=== PATIENT | male | born 1950 | race Caucasian/White ===

== ENCOUNTER → 2018-11-14 | Outpatient (REF) | payer MEDICAID ==
[~2018-11-14] MED LIST: HALD5INJ2 IM; HALO10TA2 PO
[2018-11-14 18:07] LABS: BASO % 0.6 % (0.0-1.0); EOS # 0.1 10^3/uL (0.0-0.50); EOS % 1.8 % (0.0-3.0); HEMATOCRIT 31.1 % (42.0-52.0); HEMOGLOBIN 10.2 g/dl (13.5-17.5); LYMPH # 0.3 10^3/uL (1.5-4.5); LYMPH % 9.4 % (24.0-44.0); MEAN CORPUSCULAR HEMOGLOBIN 32.3 pg (27.0-33.0); MEAN CORPUSCULAR HGB CONC 32.8 g/dl (32.0-36.5); MEAN CORPUSCULAR VOLUME 98.4 fl (80.0-96.0); MONO # 0.5 10^3/uL (0.0-0.8); MONO % 14.9 % (0.0-5.0); NEUTROPHILS # 2.5 10^3/uL (1.8-7.7); NEUTROPHILS % 72.7 % (36.0-66.0); PLATELET COUNT, AUTOMATED 164 10^3/uL (150-450); RED BLOOD COUNT 3.16 10^6/uL (4.30-6.10); WHITE BLOOD COUNT 3.4 10^3/uL (4.0-10.0)
[2018-11-14 18:17] LABS: ALBUMIN 3.9 GM/DL (3.2-5.2); ALT/SGPT 15 U/L (12-78); BILIRUBIN,TOTAL 0.8 MG/DL (0.2-1.0); BLOOD UREA NITROGEN 15 MG/DL (7-18); CALCIUM LEVEL 9.1 MG/DL (8.8-10.2); CARBON DIOXIDE LEVEL 27 MEQ/L (21-32); CHLORIDE LEVEL 104 MEQ/L (98-107); CREATININE FOR GFR 1.55 MG/DL (0.70-1.30); GLOMERULAR FILTRATION RATE 47.7 (>49); GLUCOSE, FASTING 89 MG/DL (70-100); POTASSIUM SERUM 4.3 MEQ/L (3.5-5.1); PROSTATIC SPECIFIC AG MONITOR < 0.01 NG/ML (< 4.00); SODIUM LEVEL 139 MEQ/L (136-145)
== END ==
LOC: M LAB REF 17:22
PROVIDERS: ATTEND Family Medicine Addiction Medicine
DX: C61 Malignant neoplasm of prostate (principal); G25.0 Essential tremor

== ENCOUNTER → 2018-11-18 | Outpatient (CLI) | payer MEDICAID, MEDICARE ==
[~2018-11-18] MED LIST changes: +ISOVUE-370 76% 100ML VIAL (Q9967) As Ordered ONE
--- NOTE | 2018-11-18 15:22 | REP ---
CT NECK WITH CONTRAST: HISTORY: Squamous cell carcinoma. CONTRAST: Isovue 370, 100 mL. Previous examinations are not available for comparison. Increased soft tissue density is present in the the right tongue . There is deformity of the tongue musculature. There is extension of the soft tissue density into the right lateral wall of the oropharynx. There is superior extension into the right tonsil. Increased soft tissue density is present in the preepiglottic space and in the vallecula. There is thickening of the aryepiglottic folds. Increased density is present in the retropharyngeal space and in the anterior subcutaneous tissues. The nasopharynx, larynx and subglottic trachea are normal in appearance. The salivary and thyroid glands are normal in size and density. Small lymph nodes less than 1 cm in size are present in the internal jugular chains, posterior triangles, submandibular and submental areas. Noncalcified atherosclerotic plaques are present at the carotid bifurcations. Degenerative change is present in the cervical spine. The lung apices are clear. The visualized sinuses are clear. A large retro cerebellar cyst is present. IMPRESSION: 1. There is there is no soft tissue density in the right tongue with extension into the right lateral wall of the oropharynx and right tonsil suspicious for residual or recurrent tumor. 2. Findings consistent with post radiation change. Old examinations would be helpful for comparison. Electronically Signed by Richmond Mccollum MD 11/18/2018 03:33 P
--- NOTE | 2018-11-18 18:09 | REP ---
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 Staging. No comparison study. CT contrast dose: 100 ml of intravenous Isovue 370. CT findings: Preliminary digital director of sustainability radiograph demonstrates an Qawttk-K-Mvpo catheter and feeding G tube. Ylseah-Z-Ekpc catheter is seen in the superior vena cava. No pleural or pericardial effusion is seen. There are scattered normal-sized mediastinal lymph nodes. There are two normal-sized right hilar lymph nodes. No definite adenopathy is seen. There is a small bullous in the medial aspect of the left lung apex. Lung pereyra are otherwise clear. No suspicious pulmonary nodule or mass lesion is seen. No infiltrate is observed. Bone window settings demonstrate benign hemangiomas in two adjacent lower thoracic vertebrae. No bony destructive lesion is seen. No axillary or extrathoracic adenopathy is seen. Impression: No evidence of mass or definite adenopathy. Rqcwpn-U-Rxso catheter in place. Electronically Signed by Taiwo Moralez MD 11/18/2018 06:58 P
--- NOTE | 2018-11-18 18:31 | REP ---
CT ABDOMEN PELVIS WITH IV CONTRAST ONLY: 11/18/2018. Clinical history: Squamous cell carcinoma. Technique: Bolus of 100 ml Isovue 370 performed with scanning through the abdomen pelvis with both coronal and sagittal reconstructions provided. Findings: No prior CT abdomen pelvis. CT abdomen: See CT chest report today for evaluation of the lung bases. No definite hiatal hernia. The liver is not enlarged and shows no focal mass or biliary dilatation. There is no splenomegaly hepatic or splenic calcification or mass. I see no subcapsular hematoma for either of those organs. The gallbladder shows no calcified stone or mass. Pancreas was unremarkable. The aorta is without aneurysm or dissection. There is no periaortic, retroperitoneal or mesenteric pathologic sized lymphadenopathy. Lung windows show stool and gas scattered throughout the colon without evidence of any definite colitis, diverticulitis, stricture or mass. Small bowel loops were unremarkable. Appendix is seen and normal. Bone windows show degenerative changes in the lower thoracic and lumbar spine without destructive lesion or spondylolysis. Appears to be T9 and T10 vertebral hemangiomas, benign findings. No ascites. CT pelvis: Sacrum, SI joints, pelvis, hips and ischia show some minor degenerative change without destructive lesion or fracture. Atherosclerotic calcifications iliac vessels without aneurysm. Distal left colon, sigmoid and rectum without any acute finding. Trace amount of free fluid in the deep pelvis without fluid in the peroneal gutters. Bladder only partially filled. Therefore, wall thickness difficult to director work. No gross mass or stone. No renal, ureteral or bladder stone. The kidneys without mass. Small cyst posteriorly upper and lower pole on the left. No ventral or inguinal hernia nor pathologic sized inguinal adenopathy. Impression: 1. Solid organs in the upper abdomen without acute finding. There is no calcified gallstone, biliary dilatation or generalized ascites in the abdomen. The kidneys show only a couple of tiny cysts on the left without hydronephrosis or stone. 2. Some atherosclerotic calcifications aorta without aneurysm. 3. Small bowel loops, colon and appendix seen and grossly on remarkable. 4. Bladder only partially filled and therefore, wall thickness difficult to director work. No gross mass or stone. No ventral or inguinal hernia. No acute finding. Electronically Signed by Rafal Forbes MD 11/20/2018 11:45 A
== END ==
LOC: M RAD 13:49
PROVIDERS: ATTEND Internal Medicine Hematology & Oncology
DX: Z08 Encounter for follow-up examination after completed treatment for malignant neoplasm (principal); C02.9 Malignant neoplasm of tongue, unspecified; R93.89 Abnormal findings on diagnostic imaging of other specified body structures
CPT/HCPCS: 70491; 71260; 74177; Q9967

== ENCOUNTER → 2018-12-07 | Outpatient (REF) | payer MEDICAID ==
[~2018-12-07] MED LIST changes: -ISOVUE-370 76% 100ML VIAL (Q9967) As Ordered ONE
[2018-12-07 16:12] LABS: BASO % 0.5 % (0.0-1.0); EOS % 0.9 % (0.0-3.0); HEMATOCRIT 28.8 % (42.0-52.0); HEMOGLOBIN 9.9 g/dl (13.5-17.5); LYMPH # 0.3 10^3/uL (1.5-4.5); LYMPH % 7.7 % (24.0-44.0); MEAN CORPUSCULAR HEMOGLOBIN 33.7 pg (27.0-33.0); MEAN CORPUSCULAR HGB CONC 34.4 g/dl (32.0-36.5); MONO # 0.6 10^3/uL (0.0-0.8); MONO % 12.9 % (0.0-5.0); NEUTROPHILS # 3.4 10^3/uL (1.8-7.7); NEUTROPHILS % 77.8 % (36.0-66.0); PLATELET COUNT, AUTOMATED 142 10^3/uL (150-450); RED BLOOD COUNT 2.94 10^6/uL (4.30-6.10); WHITE BLOOD COUNT 4.4 10^3/uL (4.0-10.0)
[2018-12-07 16:14] LABS: ALBUMIN 3.3 GM/DL (3.2-5.2); BILIRUBIN,TOTAL 0.4 MG/DL (0.2-1.0); CALCIUM LEVEL 8.4 MG/DL (8.8-10.2); CREATININE FOR GFR 1.35 MG/DL (0.70-1.30); POTASSIUM SERUM 3.3 MEQ/L (3.5-5.1); TOTAL PROTEIN 5.9 GM/DL (6.4-8.2)
== END ==
LOC: M LAB REF 15:37
PROVIDERS: ATTEND Family Medicine Addiction Medicine
DX: D64.89 Other specified anemias (principal); N18.2 Chronic kidney disease, stage 2 (mild)

== ENCOUNTER → 2019-01-10 | Outpatient (CLI) | payer MEDICARE, MEDICAID ==
[~2019-01-10] MED LIST changes: +FERR325T82 PO
--- NOTE | 2019-01-10 14:54 | REP ---
PET/CT: History: Staging for squamous cell carcinoma base of tongue. Status post chemotherapy and radiation. Comparisons: Comparison is made with soft tissue CT study of the neck and CT study of the chest, abdomen, and pelvis from November 18, 2018. TECHNIQUE: 55 minutes following the intravenous injection of a 7.2 mCi dose of F-18 FDG, three-dimensional PET scintigraphy is acquired from the skull base to the proximal thighs. Triplanar noncontrast CT scanning is acquired through the same anatomic range for attenuation correction, and image registration with scan parameters optimized to minimize radiation exposure to the patient. PET scintigraphy and CT datasets were fused and displayed on a workstation with multiplanar and projection display capability. PET/CT findings: There is minimal motion misregistration artifact at the head and neck. There is some mildly increased uptake in the soft palate which may be normal variant or postradiation change. Maximum standard uptake value is 6.7. There is no abnormal uptake in the tongue base. There is some mild deformity of the tongue seen. No abnormal cervical adenopathy or hypermetabolic uptake in the lymph nodes is seen. There is hypermetabolic uptake in the arytenoid cartilage region which can be normal variant. Maximum standard uptake value is 15.97. There is no corresponding abnormality morphologically here on today's CT or recent soft-tissue neck CT at the level of the arytenoids. No cervical hypermetabolic adenopathy is seen. In the chest, there is hypermetabolic uptake in a subcentimeter lung nodule in the right upper lobe, maximum standard uptake value 3.58. This nodule was not visible on the November 18, 2018 CT study. In addition, there is mildly hypermetabolic uptake in the right hilus focally suggesting a lymph node here. Maximum standard uptake value is 4.3. The recent CT study shows a normal appearing 9 mm lymph node in this position in the right hilus. There is normal longitudinally oriented mucosal esophageal uptake. No other abnormal uptake is seen within the chest. In the abdomen and pelvis, normal hepatic, splenic, gastrointestinal, and genitourinary FDG accumulation is seen. No other abnormal uptake is observed. No abnormal skeletal hypermetabolic uptake is seen. Impression: Foci of increased uptake at the level of the arytenoid cartilages and in the soft palate consistent with normal variant. No abnormal tongue base uptake is seen. No cervical adenopathy seen. There is however hypermetabolic uptake in a new right upper lobe subcentimeter pulmonary nodule and in a right hilar lymph node. Electronically Signed by Taiwo Moralez MD 01/10/2019 03:56 P
== END ==
LOC: M PLARAD 10:09
PROVIDERS: ATTEND Internal Medicine Hematology & Oncology
DX: R59.9 Enlarged lymph nodes, unspecified (principal); C01 Malignant neoplasm of base of tongue; R93.89 Abnormal findings on diagnostic imaging of other specified body structures
CPT/HCPCS: 78815; A9552

== ENCOUNTER 2019-06-29 12:55 | Emergency (ER) | payer MEDICARE, MEDICAID ==
[~2019-06-29] VITALS: Ht 175.3 cm; Wt 81.2 kg
--- NOTE | 2019-06-29 13:46 | ECGEPIP ---
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 Order Number: [id number] Reading MD: Denis Diane Measurements Intervals [place] Rate: 53 P: [place]: 0 QRS: 6 QRSD: 103 T: 52 QT: 447 QTc: 420 Interpretive Statements SINUS BRADYCARDIA WITH FIRST DEGREE AV BLOCK NO PRIORS FOR COMPARISON Electronically Signed on 06-29-2019 13:45:49 EDT by Denis Diane
--- NOTE | 2019-06-29 14:08 | REP ---
PA and lateral chest: Comparison is the chest CT dated 11/18/2018. The lung pereyra are hyperinflated but otherwise clear. There are no masses or nodules. There is a right IJ Sztfnn-A-Pkvh catheter with the tip in the superior vena cava in satisfactory position, unchanged. Cardiac size is normal. The richard, mediastinum, skeletal structures are unremarkable. Impression: Hyperinflation. No infiltrates, effusions, masses or nodules. Right IJ Fnlebu-O-Mulz catheter Electronically Signed by Donaldo Conklin MD 06/29/2019 02:00 P
[2019-06-29 14:11] LABS: APPEARANCE, URINE CLEAR (CLEAR); BACTERIA, URINE AUTO NEGATIVE (NEGATIVE); BILIRUBIN, URINE AUTO NEGATIVE (NEGATIVE); BLOOD, URINE BLOOD NEGATIVE (NEGATIVE); COLOR, URINE RED (YELLOW); GLUCOSE, URINE (UA) AUTO NEGATIVE (NEGATIVE); KETONE, URINE AUTO NEGATIVE (NEGATIVE); LEUKOCYTE ESTERASE, URINE AUTO NEGATIVE (NEGATIVE); NITRITE, URINE AUTO NEGATIVE (NEGATIVE); PROTEIN, URINE AUTO NEGATIVE (NEGATIVE); RBC, URINE AUTO 0 /HPF (0-3); SPECIFIC GRAVITY URINE AUTO 1.001 (1.002-1.035); SQUAMOUS EPITHELIAL CELL UR AU 0 /HPF (0-6); UROBILINOGEN, URINE AUTO 0.2 mg/dL (0.0-2.0); WBC, URINE AUTO 0 /HPF (0-3)
[2019-06-29 14:16] LABS: BASO % 0.6 % (0.0-1.0); EOS # 0.1 10^3/uL (0.0-0.50); EOS % 1.8 % (0.0-3.0); HEMOGLOBIN 9.4 g/dl (13.5-17.5); LYMPH # 0.3 10^3/uL (1.5-4.5); LYMPH % 6.9 % (24.0-44.0); MEAN CORPUSCULAR HEMOGLOBIN 32.4 pg (27.0-33.0); MEAN CORPUSCULAR HGB CONC 33.6 g/dl (32.0-36.5); MEAN CORPUSCULAR VOLUME 96.6 fl (80.0-96.0); MONO # 0.5 10^3/uL (0.0-0.8); NEUTROPHILS % 80.3 % (36.0-66.0); PLATELET COUNT, AUTOMATED 223 10^3/uL (150-450); WHITE BLOOD COUNT 4.9 10^3/uL (4.0-10.0)
--- NOTE | 2019-06-29 14:17 | REP ---
DEEP VENOUS ULTRASONOGRAPHY BILATERAL THIGH, RULE OUT DVT: REASON: Bilateral pain and swelling. PRIORS: None. TECHNIQUE: Multiple ultrasonographic images of the deep venous structures of the bilateral thigh were obtained from the common femoral vein to the popliteal vein along with Doppler interrogation and color flow Doppler images. FINDINGS: There is no abnormal echogenic material seen within any of the visualized deep venous structures that would suggest acute thrombosis. Coaptation is unremarkable throughout. Doppler interrogation shows an expected response to respiratory variability and augmentation. The color flow images show what appears to be a normal vascular pattern throughout. IMPRESSION: There is no ultrasonographic evidence of deep venous thrombosis involving any of the visualized deep venous structures of the bilateral thigh, as described above. Electronically Signed by Memo Garcia DO 06/29/2019 03:07 P
[2019-06-29 14:27] LABS: INR 1.09; PARTIAL THROMBOPLASTIN TIME 31.9 SECONDS (25.0-38.4); PROTHROMBIN TIME 13.8 SECONDS (11.8-14.0)
[2019-06-29 14:53] LABS: ALBUMIN 3.3 GM/DL (3.2-5.2); ALT/SGPT 14 U/L (12-78); BILIRUBIN,DIRECT 0.1 MG/DL (0.0-0.2); BILIRUBIN,TOTAL 0.2 MG/DL (0.2-1.0); BLOOD UREA NITROGEN 7 MG/DL (7-18); CALCIUM LEVEL 8.9 MG/DL (8.8-10.2); CARBON DIOXIDE LEVEL 30 MEQ/L (21-32); CHLORIDE LEVEL 99 MEQ/L (98-107); CK-MB VALUE MASS 3.9 NG/ML (<3.6); CPK CREATINE PHOSPHOKINASE 150 U/L (39-308); CREATININE FOR GFR 1.13 MG/DL (0.70-1.30); GLOMERULAR FILTRATION RATE > 60.0 (>49); GLUCOSE, FASTING 89 MG/DL (70-100); NT-PRO BNP 105 PG/ML (<125); POTASSIUM SERUM 4.5 MEQ/L (3.5-5.1); SODIUM LEVEL 135 MEQ/L (136-145); TOTAL PROTEIN 6.5 GM/DL (6.4-8.2); TROPONIN I < 0.02 NG/ML (< 0.10)
[2019-06-29] MEDS ORDERED: FUROSEMIDE 40 MG/4 ML VIAL (J1940) IV ONE (16:00)
[2019-06-29 16:01] LABS: FREE T4 0.82 NG/DL (0.76-1.46)
[2019-06-29 17:17] VITALS: BP 130/71
== END 2019-06-29 17:20 | disposition left against medical advice (07) ==
LOC: M ED 12:55
DX: R60.0 Localized edema (principal); R00.1 Bradycardia, unspecified; F17.210 Nicotine dependence, cigarettes, uncomplicated
CPT/HCPCS: 71046; 80048; 80076; 81001; 82550; 82553; 83880; 84439; 84443; 84484; 85025; 85610; 85730; 93005; 93970; 96374; 99284; J1940

== ENCOUNTER → 2019-07-18 | Outpatient (REF) | payer MEDICARE, MEDICAID ==
[2019-07-18 14:34] LABS: PERCENT SATURATION 8.1 % (19.7-50.0)
[2019-07-18 14:36] LABS: FOLATE 4.4 NG/ML
== END ==
LOC: M LAB REF 14:06
PROVIDERS: ATTEND Internal Medicine Nephrology
DX: D64.9 Anemia, unspecified (principal)

== ENCOUNTER → 2019-07-27 | Outpatient (CLI) | payer MEDICARE, MEDICAID ==
[~2019-07-27] VITALS: Ht 175.3 cm; Wt 82.0 kg
[~2019-07-27] MED LIST changes: +IRON SUCROSE 175 MG in NS 250 ML IV ONE; +IRON SUCROSE 25 MG in NS 50 ML IV ONE
== END ==
LOC: M INFU 12:54
PROVIDERS: ATTEND Internal Medicine Nephrology
DX: D50.9 Iron deficiency anemia, unspecified (principal); Z53.9 Procedure and treatment not carried out, unspecified reason

== ENCOUNTER 2019-08-08 12:20 | Outpatient (CLI) | payer MEDICARE, MEDICAID ==
[~2019-08-08] VITALS: Ht 175.3 cm; Wt 82.0 kg
[~2019-08-08 12:20] MED LIST changes: -IRON SUCROSE 175 MG in NS 250 ML IV ONE; -IRON SUCROSE 25 MG in NS 50 ML IV ONE
[2019-08-08 12:25] VITALS: BP 160/74
[2019-08-08] MEDS ORDERED: FERRIC CARBOXYMALTOSE INJ 750 MG in NS 250 ML IV ONE (13:00)
[2019-08-08] MEDS ORDERED: FERR240T PO (13:10)
[2019-08-08] MEDS ORDERED: FURO40TA2 PO (13:10)
[2019-08-08] MEDS ORDERED: LEVO25TA5 PO (13:10)
[2019-08-08 13:40] VITALS: BP 157/71
[2019-08-08 14:50] VITALS: BP 168/77
== END 2019-08-08 14:50 | disposition home or self-care (01) ==
LOC: M INFU 12:20
PROVIDERS: ATTEND Internal Medicine Nephrology
DX: D50.9 Iron deficiency anemia, unspecified (principal)
CPT/HCPCS: 96365; J1439

== ENCOUNTER → 2019-10-02 | Outpatient (REF) | payer MEDICARE, MEDICAID ==
[~2019-10-02] MED LIST changes: +FERR240T PO; +FURO40TA2 PO; +LEVO25TA5 PO
[2019-10-02 13:14] LABS: BASO % 0.6 % (0.0-1.0); EOS # 0.1 10^3/uL (0.0-0.5); EOS % 1.5 % (0.0-3.0); HEMATOCRIT 37.5 % (42.0-52.0); HEMOGLOBIN 12.1 g/dl (13.5-17.5); LYMPH # 0.6 10^3/uL (1.5-5.0); LYMPH % 9.3 % (24.0-44.0); MEAN CORPUSCULAR HEMOGLOBIN 31.3 pg (27.0-33.0); MEAN CORPUSCULAR HGB CONC 32.3 g/dl (32.0-36.5); MEAN CORPUSCULAR VOLUME 97.2 fl (80.0-96.0); MONO # 0.6 10^3/uL (0.0-0.8); MONO % 8.9 % (0.0-5.0); NEUTROPHILS # 4.9 10^3/uL (1.5-8.5); NEUTROPHILS % 79.4 % (36.0-66.0); PLATELET COUNT, AUTOMATED 182 10^3/uL (150-450); RED BLOOD COUNT 3.86 10^6/uL (4.30-6.10); WHITE BLOOD COUNT 6.2 10^3/uL (4.0-10.0)
[2019-10-02 13:20] LABS: ALBUMIN 3.8 GM/DL (3.2-5.2); BILIRUBIN,TOTAL 0.5 MG/DL (0.2-1.0); CALCIUM LEVEL 9.3 MG/DL (8.8-10.2); CHOLESTEROL RISK RATIO 2.765 (<5); CREATININE FOR GFR 1.37 MG/DL (0.70-1.30); FREE T4 0.89 NG/DL (0.76-1.46); GLOMERULAR FILTRATION RATE 54.8 (>49); POTASSIUM SERUM 4.5 MEQ/L (3.5-5.1); TOTAL PROTEIN 7.2 GM/DL (6.4-8.2)
[2019-10-02 13:23] LABS: TOTAL 25(OH) VITAMIN D 23.3 NG/ML (30.0-100.0)
[2019-10-02 14:16] LABS: HEMOGLOBIN A1c 5.2 %
== END ==
LOC: M LAB REF 12:15
PROVIDERS: ATTEND Family Medicine
DX: Z13.228 Encounter for screening for other metabolic disorders (principal); Z12.5 Encounter for screening for malignant neoplasm of prostate; M25.50 Pain in unspecified joint; R53.82 Chronic fatigue, unspecified; E03.9 Hypothyroidism, unspecified; D64.89 Other specified anemias

== ENCOUNTER → 2021-07-25 | Outpatient (CLI) | payer OTHER ==
[2021-07-25 15:10] LABS: APPEARANCE, URINE CLEAR (CLEAR); BILIRUBIN, URINE AUTO NEGATIVE (NEGATIVE); BLOOD, URINE BLOOD NEGATIVE (NEGATIVE); COLOR, URINE STRAW (YELLOW); GLUCOSE, URINE (UA) AUTO NEGATIVE (NEGATIVE); KETONE, URINE AUTO NEGATIVE (NEGATIVE); LEUKOCYTE ESTERASE, URINE AUTO NEGATIVE (NEGATIVE); NITRITE, URINE AUTO NEGATIVE (NEGATIVE); PROTEIN, URINE AUTO NEGATIVE (NEGATIVE); SPECIFIC GRAVITY URINE AUTO 1.003 (1.002-1.035); UROBILINOGEN, URINE AUTO 0.2 mg/dL (0.0-2.0)
[2021-07-25 15:11] LABS: BACTERIA, URINE AUTO NEGATIVE (NEGATIVE); RBC, URINE AUTO 0 /HPF (0-3); SQUAMOUS EPITHELIAL CELL UR AU 0 /HPF (0-6); WBC, URINE AUTO 0 /HPF (0-3)
[2021-07-25 15:12] LABS: HEMATOCRIT 37.8 % (42.0-52.0); HEMOGLOBIN 12.4 g/dl (13.5-17.5); MEAN CORPUSCULAR HEMOGLOBIN 33.8 pg (27.0-33.0); MEAN CORPUSCULAR HGB CONC 32.8 g/dl (32.0-36.5); PLATELET COUNT, AUTOMATED 191 10^3/uL (150-450); RED BLOOD COUNT 3.67 10^6/uL (4.30-6.10); WHITE BLOOD COUNT 6.1 10^3/uL (4.0-10.0)
[2021-07-25 15:23] LABS: INR 0.96; PROTHROMBIN TIME 13.2 SECONDS (12.7-14.5)
[2021-07-25 15:24] LABS: PARTIAL THROMBOPLASTIN TIME 31.1 SECONDS (25.9-37.0)
[2021-07-25 15:37] LABS: ALBUMIN 3.7 GM/DL (3.2-5.2); ALT/SGPT 24 U/L (12-78); BILIRUBIN,TOTAL 0.5 MG/DL (0.2-1.0); BLOOD UREA NITROGEN 11 MG/DL (7-18); CALCIUM LEVEL 9.2 MG/DL (8.8-10.2); CARBON DIOXIDE LEVEL 30 MEQ/L (21-32); CHLORIDE LEVEL 104 MEQ/L (98-107); CREATININE FOR GFR 1.12 MG/DL (0.70-1.30); GLOMERULAR FILTRATION RATE > 60.0 (>42); GLUCOSE, FASTING 87 MG/DL (70-100); POTASSIUM SERUM 4.4 MEQ/L (3.5-5.1); SODIUM LEVEL 141 MEQ/L (136-145); TOTAL PROTEIN 6.9 GM/DL (6.4-8.2)
[2021-07-25 15:47] LABS: HEMOGLOBIN A1c 4.8 %
== END ==
LOC: M LAB 14:08
PROVIDERS: ATTEND Internal Medicine
DX: K40.91 Unilateral inguinal hernia, without obstruction or gangrene, recurrent (principal); Z79.899 Other long term (current) drug therapy

== ENCOUNTER → 2021-09-04 | Outpatient (CLI) | payer OTHER | LOC: M LABSMTC 09:52 | PROVIDERS: ATTEND Anesthesiology | DX: Z01.818 Encounter for other preprocedural examination (principal); Z11.52 Encounter for screening for COVID-19 ==

== ENCOUNTER 2021-09-09 11:31 | Day surgery (SDC) | payer OTHER ==
[~2021-09-09] VITALS: Ht 177.8 cm; Wt 72.6 kg
[~2021-09-09 11:31] MED LIST changes: +LIDOCAINE 1% MDV 20ML VIAL SQ PRN; +LR 1,000 ML IV ONE
--- OUTSIDE RECORDS SUMMARY | 2021-09-09 11:35 | CCD | Continuity of Care Document ---
Author Dalton Ruiz M.D. Organization Unknown Address [address] [place] [address], [address] [place] [address] Phone [phone] Care Team Providers Care Hydrologic Engineer Name Role Phone Mike Raymundo M.D. AUTM [phone] Problems Description No Information Available Social History Type Date Description Comments Sex Unknown ETOH Use Denies alcohol use Recreational Drug Use Denies Drug Use Tobacco Use Start: Unknown Patient is a current smoker, smo kes every day 10 cigarettes a day Allergies and adverse reactions Description No Known Drug Allergies Medications Description No Active Medications Immunizations Description No Information Available Vital Signs Date Vital Result Comment 07/09/2021 2:17pm BP Systolic 132 mmHg BP Diastolic 78 mmHg Body Temperature 98.5 F Height 70 inches 5'10" Weight 165.00 lb BMI (Body Mass Index) 23.7 kg/m2 [place] Body Weight 166 lb Weight 74.844 kg BSA (Body Surface Area) 1.92 m2 12/06/2018 9:48am Height 69 inches 5'9" Weight 176.00 lb BMI (Body Mass Index) 26.0 kg/m2 [place] Body Weight 160 lb Weight 79.834 kg BSA (Body Surface Area) 1.96 m2 Results Description No Information Available Procedures Date Code Description Status 07/09/2021 42606 Office/Outpatient New Moderate M DM 45-59 Minutes Completed Medical Devices Description No Information Available Encounters Type Date Location Provider Dx Diagnosis Office Visit 07/09/2021 2:15p [facility] Linus crowder M.D. K40.90 Unil inguinal hernia, w/o obst or gangr, not spcf as recur Z85.810 Personal history of malignan t neoplasm of tongue Assessments Date Code Description Provider 07/09/2021 K40.90 Unilateral inguinal hernia, without obstruction or gangrene, not specified as recurrent Linus Shi M.D. 07/09/2021 Z85.810 Personal history of malignant ne oplasm of tongue Linus Shi M.D. Plan of Treatment Future Appointment(s):* 09/23/2021 10:15 am - [facility] [place] [facility] * 09/09/2021 2:15 pm - Linus Shi M.D. at [facility] 07/09/2021 - Linus Shi M.D.* K40.90 Unilateral inguinal hernia, without obstruction or gangrene, not specified as recurrent* Comments:* Patient was counseled that he does have a large inguinal hernia. This clearly contains bowel. Though he is not having significant pain at this point I think it would be very reasonable to repair his hernia to prevent future problems. I c ounseled him that a hernia is just a hole through the muscle layers of the abdomen. To repair this I would recommend performing a robotic assisted laparoscopic approach which would involve possibly closing the defect with some sutures and then placing a piece of prosthetic mesh over this internally. He had an opportunity to ask questions. He was counseled regarding the risks of the procedure. He desires to proceed. I will request preoperative medical optimization from his physician and schedule him for a robotic assisted repair of his inguinal hernia. * Z85.810 Personal history of malignant neoplasm of tongue Functional Status Description No Information Available Mental Status Description No Information Available Referrals Refer to Reason for Referral Status Appt Date Linus Shi M.D. LEFT INGUINAL HERNIA Scheduled 06/08 [facility] [address] [place] [phone]
--- OUTSIDE RECORDS SUMMARY | 2021-09-09 11:35 | CCD | Continuity of Care Document ---
Author Author Dalton OLMSTEAD M.D. Organization Unknown Address [address] [place] [address], [address] [place] [address] Phone [phone] Care Team Providers Care Supervisor Coal Handling Name Role Phone Mike Raymundo M.D. AUTM [phone] Problems Description No Information Available Social History Type Date Description Comments Sex Unknown ETOH Use Denies alcohol use Recreational Drug Use Denies Drug Use Tobacco Use Start: Unknown Patient is a current smoker, smo kes every day 10 cigarettes a day Allergies, Adverse Reactions, Alerts Description No Known Drug Allergies Medications Description No Active Medications Immunizations Description No Information Available Vital Signs Date Vital Result Comment 07/09/2021 2:17pm BP Systolic 132 mmHg BP Diastolic 78 mmHg Body Temperature 98.5 F Height 70 inches 5'10" Weight 165.00 lb BMI (Body Mass Index) 23.7 kg/m2 [place] Body Weight 166 lb Weight 74.844 kg BSA (Body Surface Area) 1.92 m2 12/06/2018 9:48am Height 69 inches 5'9" Weight 176.00 lb BMI (Body Mass Index) 26.0 kg/m2 [place] Body Weight 160 lb Weight 79.834 kg BSA (Body Surface Area) 1.96 m2 Results Description No Information Available Procedures Description No Information Available Medical Devices Description No Information Available Encounters Description No Information Available Assessments Description No Information Available Plan of Treatment 12/06/2018 - Tima Arriola MD* C01 Malignant neoplasm of base of tongue* Recommendations:* Try to get records from [facility] to maintain weight Dr. Bay to order PET soon Follow up here in 3 months Functional Status Description No Information Available Mental Status Description No Information Available Referrals Refer to Reason for Referral Status Appt Date Linus Olmstead M.D. LEFT INGUINAL HERNIA Scheduled 06/08 [facility] [address] [address] [phone]
--- OUTSIDE RECORDS SUMMARY | 2021-09-09 11:35 | CCD ---
Author Author [facility] Organization [facility] Address Unknown Phone Unavailable Care Team Providers Care Supervisor Doping Name Role Phone Christal OLMSTEAD MD Unavailable Unavailable AYSHAChristal AGUILAR MD Unavailable Unavailable AYSHAChristal AGUILAR MD Unavailable Unavailable AYSHAChristal AGUILAR MD Unavailable Unavailable AYSHAChristal AGUILAR MD Unavailable Unavailable AYSHAChristal AGUILAR MD Unavailable Unavailable AYSHAChristal AGUILAR MD Unavailable Unavailable AYSHAChristal AGUILAR MD Unavailable Unavailable AYSHAChristal AGUILAR MD Unavailable Unavailable AYSHAChristal AGUILAR MD Unavailable Unavailable AYSHAChristal AGUILAR MD Unavailable Unavailable AYSHAChristal AGUILAR MD Unavailable Unavailable AYSHAChristal MD Unavailable Unavailable AYSHAChristal MD Unavailable Unavailable AYSHAChristal MD Unavailable Unavailable AYSHAChristal MD Unavailable Unavailable AYSHAChristal AGUILAR MD Unavailable Unavailable AYSHAChristal AGUILAR MD Unavailable Unavailable AYSHAChristal AGUILAR MD Unavailable Unavailable Christal OLMSTEAD MD Unavailable Unavailable Christal OLMSTEAD MD Unavailable Unavailable Christal OLMSTEAD MD Unavailable Unavailable AYSHAChristal AGUILAR MD Unavailable Unavailable AYSHAChristal AGUILAR MD Unavailable Unavailable AYSHAChristal AGUILAR MD Unavailable Unavailable AYSHAChristal AGUILAR MD Unavailable Unavailable AYSHAChristal AGUILAR MD Unavailable Unavailable AYSHAChristal AGUILAR MD Unavailable Unavailable AYSHAChristal AGUILAR MD Unavailable Unavailable AYSHAChristal AGUILAR MD Unavailable Unavailable AYSHA, O RICHARD JEFF Unavailable Unavailable AYSHA, O RICHARD MD Unavailable Unavailable AYSHA, O RICHARD MD Unavailable Unavailable AYSHA, O RICHARD MD Unavailable Unavailable AYSHA, O RICHARD MD Unavailable Unavailable AYSHA, O RICHARD MD Unavailable Unavailable AYSHA, O RICHARD MD Unavailable Unavailable AYSHA, O RICHARD MD Unavailable Unavailable AYSHA, O RICHARD MD Unavailable Unavailable AYSHA, O RICHARD MD Unavailable Unavailable AYSHA, O RICHARD MD Unavailable Unavailable AYSHA, O RICHARD MD Unavailable Unavailable AYSHA, O RICHARD MD Unavailable Unavailable AYSHA, O RICHARD MD Unavailable Unavailable Re-disclosure Warning The records that you are about to access may contain information from federally-assisted alcohol or drug abuse programs. If such information is present, then the following federally mandated warning applies: This information has been disclosed to you from records protected by federal confidentiality rules (42 CFR part 2). The federal rules prohibit you from making any further disclosure of this information unless further disclosure is expressly permitted by the written consent of the person to whom it pertains or as otherwise permitted by 42 CFR part 2. A general authorization for the release of medical or other information is NOT sufficient for this purpose. The Federal rules restrict any use of the information to criminally investigate or prosecute any alcohol or drug abuse patient.The records that you are about to access may contain highly sensitive health information, the redisclosure of which is protected by Article 27-F of the [facility] Public Health law. If you continue you may have access to information: Regarding HIV / AIDS; Provided by facilities licensed or operated by the [facility] Office of Mental Health; or Provided by the [facility] Office for People With Developmental Disabilities. If such information is present, then the following [facility] mandated warning applies: This information has been disclosed to you from confidential records which are protected by state law. State law prohibits you from making any further disclosure of this information without the specific written consent of the person to whom it pertains, or as otherwise permitted by law. Any unauthorized further disclosure in violation of state law may result in a fine or care home sentence or both. A general authorization for the release of medical or other information is NOT sufficient authorization for further disc losure. Family History Family Member Name Family Member Gender Family Member Status Date o f Status Description Data Source(s) Unknown Unknown Problem [facility] ([facility], ) Encounters Encounter Providers Location Date Indications Data Source(s ) Outpatient Attender: RICHARD [place]/Jeovany/Mercedes ramsey 07/09/2021 02:15:00 PM EDT [facility] ([facility]) Medications No Information Insurance Providers Payer name Policy type / Coverage type Policy ID Covered constitution party ID Covered constitution party's relationship to mensah Policy Mensah Plan Information Medicaid S [id number] S [id number] Medicare P [id number] S [id number] MEDICAID [id number] SP [id number] MEDICARE [id number] SP [id number] P82 MEDICARE [id number] SP [id number] A MEDICAID [id number] SP [id number] 'S ADMINISTRATION [id number] SP [id number] [place] [id number] SP [id number] [place] MEDICAID [id number] SP [id number] 'S ADMINISTRATION [id number] SP [id number] Medicaid P [id number] S [id number] [facility] [id number] SP [id number] 28 MEDICARE [id number] SP [id number] P82 MEDICAID [id number] SP [id number] MEDICAID M [id number] S [id number] MEDICARE C [id number] S [id number] P82 MEDICARE [id number] SP [id number] A Medicare P [id number] S [id number] P82 Medicaid [place] [id number] Self [id number] Problems, Conditions, and Diagnoses No Information Surgeries/Procedures Procedure Description Date Indications Data Source(s) OFFICE OUTPATIENT NEW 45 MINUTES 07/09/2021 12:00:00 A M EDT LIZZIE ([facility], ) Results No Information Social History No Information Vital Signs ID Date Data Source UNK Name Value Range Interpretation Code Description Data Source(s) Systolic blood pressure 132 mm[Hg] 132 mm[Hg] M SANJU ([facility], ) Diastolic blood pressure 78 mm[Hg] 78 mm[Hg] MEDJUAN ([facility]) Body temperature 98.5 [degF] 98.5 [degF] [facility] ([facility]) Body height 70 [in_i] 70 [in_i] [facility] ([facility]) 5'10" Body weight 165.00 [lb_av] 165.00 [lb_av] [facility] Body mass index (BMI) [Ratio] 23.7 kg/m2 23.7 k g/m2 [facility] ([facility]) [place] body weight 166 [lb_av] 166 [lb_av] [facility] Body weight 74.844 kg 74.844 kg [facility] ([facility]) Body surface area Derived from formula 1.92 m2 1.92 m2 [facility] ([facility])
[2021-09-09] MEDS ORDERED: BUPIVACAINE HCL 0.25% 30ML VIAL As Ordered ONE (16:07)
[2021-09-09] MEDS ORDERED: fentaNYL 250 MCG/5 ML INJECTION (J3010) As Ordered ONE (16:45)
[2021-09-09] MEDS ORDERED: propofoL 200 MG/20 ML VIAL As Ordered ONE (16:45)
[2021-09-09] MEDS ORDERED: ROCURONIUM BROMIDE 50 MG/5 ML VIAL As Ordered ONE ×2 (16:45→18:05)
[2021-09-09] MEDS ORDERED: LIDOCAINE 2% 100MG/5ML SDV (FOR ANES.) As Ordered ONE (16:45)
[2021-09-09] MEDS ORDERED: GLYCOPYRROLATE INJ 0.2 MG/ML 2 ML VIAL As Ordered ONE (16:45)
[2021-09-09] MEDS ORDERED: dexameTHASONE 4 MG/ML 1ML VIAL (J1100 PER 1MG) As Ordered ONE (16:45)
[2021-09-09] MEDS ORDERED: MIDAZOLAM INJ 2MG/2ML VIAL (J2250 PER 1MG) As Ordered ONE (16:45)
[2021-09-09] MEDS ORDERED: ePHEDrine SULFATE 25 MG/5 ML(5MG/ML) SYRINGE As Ordered ONE (16:50)
[2021-09-09] MEDS ORDERED: ONDANSETRON 4MG/2ML VIAL As Ordered ONE (16:52)
[2021-09-09] MEDS ORDERED: PHENYLephrine 500MCG 5ML (100MCG/ML) SYRINGE As Ordered ONE (16:53)
[2021-09-09] MEDS ORDERED: ACETAMINOPHEN 1000MG 100ML IV BTL (OFIRMEV) (J0131 PER 10MG) As Ordered ONE (17:07)
[2021-09-09] MEDS ORDERED: SUGAMMADEX SODIUM 500 MG/5 ML VIAL (BRIDION) As Ordered ONE (17:57)
[2021-09-09] MEDS ORDERED: LR 1,000 ML IV SCH (20:35)
[2021-09-09] MEDS ORDERED: fentaNYL 100 MCG/2 ML INJECTION (J3010) IV PRN (20:35)
[2021-09-09] MEDS ORDERED: oxyCODONE 5MG TAB PO PRN (20:35)
[2021-09-09] MEDS ORDERED: ONDANSETRON 4MG/2ML VIAL IV PRN (20:35)
[2021-09-09] MEDS ORDERED: ACETAMINOPHEN TAB 650MG DOSE (2X325MG) PO PRN (20:50)
[2021-09-09] MEDS ORDERED: IBUPROFEN 600MG TAB PO PRN (20:50)
[2021-09-09] MEDS ORDERED: NORCO, ANEXSIA 5/325MG TABLET (HYDROcodone/ACETAMINOPHEN) PO PRN (20:55)
[2021-09-09 21:05] VITALS: BP 152/76
[2021-09-09 22:00] VITALS: BP 143/69
[2021-09-09 23:00] VITALS: BP 159/119
[2021-09-10 01:00] VITALS: BP 153/78
[2021-09-10 02:00] VITALS: BP 151/77
[2021-09-10 06:00] VITALS: BP 152/78
[2021-09-10 10:00] VITALS: BP 146/77
--- NOTE | 2021-09-10 15:20 | IPN ---
PROGRESS NOTE DATE: 09/10/2021 SUBJECTIVE: Patient is now postop day #1 from robotic-assisted laparoscopic repair of a very large left complete inguinal hernia. He did very well with the surgery. Because he lives alone and has no friends or family to stay with him he was held overnight in the hospital following his surgery. He reports that he is doing well this morning. He has had no medications for pain. He apparently has tolerated some liquids and has voided. OBJECTIVE: Vital signs shows that he has been afebrile all night with a pulse in the 50s and a good blood pressure. Physical exam reveals a pleasant man in no distress. He denies any significant pain but says there is some soreness around the left side trocar site. Examination shows that there is no significant collection of fluid in the scrotum at this point. The abdomen is otherwise flat and soft. IMPRESSION: Patient is doing well postop day #1 from his robotic-assisted repair of his large hernia. PLAN: Patient will be discharged home. He has a follow-up appointment on the at about 10:15 in the morning. He knows to contact the office for any problems. He was counseled to avoid any strenuous physical activity until after seen in the office.
--- NOTE | 2021-09-10 20:13 | RO ---
OPERATIVE NOTE DATE OF OPERATION: 09/09/2021 PREOPERATIVE DIAGNOSIS: Large complete left inguinal hernia. POSTOPERATIVE DIAGNOSIS: Large complete left inguinal hernia. PROCEDURE PERFORMED: Robotic-assisted laparoscopic repair of large, complete left inguinal hernia with mesh. The mesh utilized was a ProGrip, reference code [id number], [id number] #[id number]. SURGEON: Linus Shi MD CRATE TIER: ANESTHESIA: General INDICATIONS FOR THE PROCEDURE: The patient is a 71-year-old man with a longstanding large left inguinal hernia. This clearly contains bowel when standing but does reduce when supine with some gentle manipulation. He is now for a robotic-assisted laparoscopic repair of his hernia. OPERATIVE PROCEDURE: The patient was brought to the operating room and placed on the table in a supine position. He was placed under general endotracheal anesthesia. TEDs and sequentials were utilized. The patient's abdomen, groins and genitalia were prepped and draped in a sterile fashion. Inspection revealed that his hernia was reduced. 1/4% Marcaine was infiltrated at the trocar sites as needed. A short midline supraumbilical incision was made and the Veress needle inserted. After a positive hanging drop test, the abdomen was inflated with carbon dioxide gas. An 8 mm port was placed over the scope and then advanced to the abdominal wall without difficulty. Initial examination showed no evidence of trocar or Veress needle injury. Visualized loops of the small and large bowel appeared normal. There was clearly a large indirect inguinal hernia in the left side of the pelvis. Two additional ports were placed in the right and left upper quadrant. The patient was tilted into a roughly 15 degree Trendelenburg position. The patient cart to the da Kristal XI robot was brought into position and the endoscope port was docked to the middle port. The camera was inserted and targeting took place in the pelvis. The additional robotic arms were docked and a fenestrated bipolar and cauterizing scissors were inserted. I then moved to the control console to proceed with the operation. Inspection showed some scarring along the midline of the pelvis consistent with his prior prostatectomy. There was no sign of hernia on the right. On the left side, there was a quite large indirect inguinal hernia identified. I proceeded to incise the peritoneum to create a preperitoneal space. This incision was begun approximately 6 cm above the superior edge of the hernia defect. I started at the area of the medial umbilical ligament through this area was quite distorted from his prior surgery. The dissection was carried laterally and then slightly inferiorly toward the anterior-superior iliac spine. Ultimately the dissection was carried farther toward the midline. There was some scarring in the medial aspect of the preperitoneal space. Naturally, things were somewhat distorted by the large hernia sac as well. The lateral aspect of the dissection was much simpler in the absence of any prior surgery. The flap was dissected laterally and medially. Medially, the area of Gustavo's ligament was identified. The dissection ultimately extended approximately to the level of the midline symphysis of the pubis. The hernia sac was then grasped and dissected free from surrounding structures. The hernia sac was quite large but also quite thick walled as it had been present for many years. It was possible to dissect the cord structures away from the hernia sac and preserve most of the structures. The hernia sac was completely everted into the abdomen intact. Hemostasis was ensured using the cautery. I elected to close the medial aspect of the hernia defect. A 2-0 V-Loc suture was used as a running suture to approximate the medial aspect of the internal inguinal ring. I was able to close approximately half of the diameter of the defect which significantly reduced the size of the opening. An extra large ProGrip mesh which was 16 x 12 cm was selected. The corners were trimmed slightly. This was inserted into the abdomen and placed into the preperitoneal space centered over the hernia defect. This extended approximately to the pubic symphysis and down over the area of Gustavo's ligament. This nicely covered the inguinal floor. I did place three 2-0 Vicryl tacking sutures at the medial end of the mesh to hold this in place where there was some distortion from the prior surgery. The hernia sac was then partially excised. The peritoneal flap was then closed beginning at the medial and lateral ends with separate 2-0 Vicryl V-Loc sutures. A third suture was used to close the area where the portion of the hernia sac had been excised. As the closure proceeded, the patient was returned to a flat position and the intra-abdominal pressure was reduced. The completed repair looked excellent. All needles were removed. The hernia sac portion was placed into a 5 mm specimen retrieval pouch inserted through the right-sided trocar. The robot was then undocked after withdrawing the remaining robotic instruments. I returned to the patient's bedside. The abdomen was deflated and the trocars were removed. The specimen pouch was retrieved through the right side of the trocar site. It was possible to open the mouth of the pouch outside the abdomen and withdraw the specimen with a clamp. The superficial fascia in each incision was then closed with a single 3-0 Vicryl suture and the skin edges were approximated with buried 4-0 Vicryl and Steri-Strips. Some additional 1/4% Marcaine was infiltrated at each site. Light dressings were applied. The patient tolerated the procedure well without apparent complication. The patient was awakened in the operating room, extubated and moved to the recovery room in stable condition.
== END 2021-09-10 11:50 | disposition home or self-care (01) ==
LOC: M ADMPAT 11:31 → M SDC 11:31 → M MS5PR 21:05 → M ADMPAT 09-10 11:50
PROVIDERS: ATTEND Surgery
DX: K40.30 Unilateral inguinal hernia, with obstruction, without gangrene, not specified as recurrent (principal); E03.9 Hypothyroidism, unspecified; Z91.14 Patient's other noncompliance with medication regimen; R13.10 Dysphagia, unspecified; D50.9 Iron deficiency anemia, unspecified; Z85.810 Personal history of malignant neoplasm of tongue; Z85.46 Personal history of malignant neoplasm of prostate; Z92.21 Personal history of antineoplastic chemotherapy; Z90.79 Acquired absence of other genital organ(s); F17.210 Nicotine dependence, cigarettes, uncomplicated
CPT/HCPCS: 49650; 88302; C1781; J0131; J1100; J2250; J2370; J2405; J3010; S2900

== ENCOUNTER 2024-07-27 09:08 | Inpatient (IN) | payer OTHER ==
[~2024-07-27] VITALS: Ht 175.3 cm; Wt 58.4 kg
[~2024-07-27 09:08] MED LIST changes: -LIDOCAINE 1% MDV 20ML VIAL SQ PRN; -LR 1,000 ML IV ONE
[2024-07-27 10:25] LABS: BASO % 0.5 % (0.0-1.0); EOS % 0.6 % (0.0-3.0); HEMATOCRIT 25.9 % (42.0-52.0); HEMOGLOBIN 7.9 g/dl (13.5-17.5); LYMPH # 0.3 10^3/uL (1.5-5.0); MEAN CORPUSCULAR HGB CONC 30.5 g/dl (32.0-36.5); MEAN CORPUSCULAR VOLUME 91.8 fl (80.0-96.0); MONO # 0.5 10^3/uL (0.0-0.8); MONO % 6.8 % (2.0-8.0); NEUTROPHILS # 5.7 10^3/uL (1.5-8.5); NEUTROPHILS % 86.5 % (36.0-66.0); PLATELET COUNT, AUTOMATED 290 10^3/uL (150-450); RED BLOOD COUNT 2.82 10^6/uL (4.30-6.10); WHITE BLOOD COUNT 6.6 10^3/uL (4.0-10.0)
[2024-07-27 10:58] LABS: BILIRUBIN,TOTAL 0.5 MG/DL (0.3-1.2); CALCIUM LEVEL 8.2 MG/DL (8.3-10.6); CK-MB VALUE MASS 5.3 NG/ML (<3.6); CREATININE FOR GFR 1.43 MG/DL (0.70-1.30); GLOMERULAR FILTRATION RATE 51.5 (>42); MB/CK RELATIVE INDEX 5.19 (< OR =4)
[2024-07-27] MEDS ORDERED: ISOVUE-370 76% 100ML VIAL As Ordered ONE (11:12)
[2024-07-27] MEDS ORDERED: ELIQ5TAB PO (13:26)
[2024-07-27] MEDS: APIXABAN 5 MG TAB (ELIQUIS) PO ONE (13:45)
[2024-07-27] MEDS ORDERED: HOME MED LIST COMPLETE! XX SCH (15:20)
[2024-07-27] MEDS ORDERED: NICOTINE 21MG/24HR 1 EA TRANSDERMAL TD PRN (15:55)
[2024-07-27 16:33] LABS: CHOLESTEROL RISK RATIO 2.38 (<5); HDL CHOLESTEROL 58.3 MG/DL (>40); LDL CHOLESTEROL 61.9 MG/DL (<100); NON-HDL-C 80.7 MG/DL
[2024-07-27 16:35] LABS: FERRITIN 15.4 NG/ML (10.5-307.3); TOTAL 25(OH) VITAMIN D 18.8 NG/ML (20.0-100.0)
[2024-07-27 16:42] LABS: INR 1.4; PROTHROMBIN TIME 16.7 SECONDS (12.5-14.5)
[2024-07-27] MEDS: D5W/0.45% SODIUM CHLORIDE 1,000 ML IV SCH (16:50)
[2024-07-27] MEDS ORDERED: METAL LOCK LOOP XX ONE (18:32)
[2024-07-27] MEDS: NYSTATIN 500,000U/5ML SUSP UDC SS SCH (19:19)
[2024-07-27] MEDS: PANTOPRAZOLE 40MG VIAL IV SCH (19:19)
[2024-07-27 20:23] VITALS: BP 106/58; TEMP 97.7; O2SAT 97
[2024-07-27] MEDS: ENOXAPARIN 80MG/0.8ML SYRINGE (J1650 PER 10MG) SC SCH (23:51)
[2024-07-28] VITALS (10 sets, daily range): BP systolic 82–117; BP diastolic 38–92; TEMP 96.8–97.7; O2SAT 90–100
[2024-07-28 06:24] LABS: HEMOGLOBIN 7.6 g/dl (13.5-17.5); MEAN CORPUSCULAR HEMOGLOBIN 27.6 pg (27.0-33.0); MEAN CORPUSCULAR HGB CONC 30.4 g/dl (32.0-36.5); MEAN CORPUSCULAR VOLUME 90.9 fl (80.0-96.0); PLATELET COUNT, AUTOMATED 289 10^3/uL (150-450); RED BLOOD COUNT 2.75 10^6/uL (4.30-6.10); WHITE BLOOD COUNT 8.3 10^3/uL (4.0-10.0)
[2024-07-28 06:52] LABS: ALBUMIN 1.8 G/DL (3.2-5.2); BILIRUBIN,TOTAL 0.4 MG/DL (0.3-1.2); CALCIUM LEVEL 8.1 MG/DL (8.3-10.6); CREATININE FOR GFR 1.26 MG/DL (0.70-1.30); GLOMERULAR FILTRATION RATE 59.6 (>42); POTASSIUM SERUM 3.7 MMOL/L (3.5-5.1); TOTAL PROTEIN 4.6 G/DL (5.7-8.2)
[2024-07-28] MEDS ORDERED: propofoL 200 MG/20 ML VIAL As Ordered ONE (12:02)
[2024-07-28] MEDS ORDERED: LIDOCAINE 2% 100MG/5ML SDV (FOR ANES.) As Ordered ONE (12:02)
[2024-07-28] MEDS ORDERED: ROCURONIUM BROMIDE 50MG/5ML VIAL As Ordered ONE (12:02)
[2024-07-28] MEDS ORDERED: SUGAMMADEX SODIUM 500 MG/5 ML VIAL (BRIDION) As Ordered ONE (12:02)
[2024-07-28] MEDS ORDERED: ACETAMINOPHEN 1000MG 100ML IV BAG As Ordered ONE (12:02)
[2024-07-28] MEDS ORDERED: ONDANSETRON 4MG 2ML VIAL As Ordered ONE (12:02)
[2024-07-28] MEDS ORDERED: MIDAZOLAM INJ 2MG/2ML VIAL As Ordered ONE (12:03)
[2024-07-28] MEDS ORDERED: fentaNYL 100 MCG/2 ML INJECTION As Ordered ONE (12:03)
[2024-07-28] MEDS: CETACAINE SPRAY 5GM As Ordered ONE (13:21)
[2024-07-28] MEDS ORDERED: ePHEDrine SULFATE 25 MG/5 ML(5MG/ML) SYRINGE As Ordered ONE (13:37)
[2024-07-28] MEDS ORDERED: PHENYLephrine 500MCG 5ML (100MCG/ML) SYRINGE As Ordered ONE (13:37)
[2024-07-28] MEDS: EPINEPHrine 1MG/10ML SYRINGE 1.5IN As Ordered ONE (13:50)
[2024-07-28] MEDS: LIDOCAINE 1% MDV 20ML VIAL As Ordered ONE (13:50)
[2024-07-28] MEDS: THROMBIN 5,000 UNITS VIAL As Ordered ONE (13:50)
[2024-07-28] MEDS ORDERED: ONDANSETRON 4MG 2ML VIAL IV PRN (14:05)
[2024-07-28] MEDS ORDERED: oxyCODONE 5MG TAB PO PRN (14:05)
[2024-07-28] MEDS: LR 1,000 ML IV SCH (14:05)
[2024-07-28] MEDS ORDERED: HYDROMORPHONE HCL 0.5 MG/ 0.5 ML SYRINGE IV PRN (14:05)
[2024-07-28] MEDS ORDERED: fentaNYL 100 MCG/2 ML INJECTION IV PRN (14:05)
[2024-07-28] MEDS: IRON SUCROSE 200 MG in NS 100 ML IV SCH (14:56)
[2024-07-28] MEDS: NS 1,000 ML IV ONE (19:43)
[2024-07-28] MEDS: NS 1,000 ML IV SCH (20:46)
[2024-07-29] VITALS (18 sets, daily range): BP systolic 90–110; BP diastolic 34–70; TEMP 97.5–98.1; O2SAT 92–98
[2024-07-29 05:40] LABS: HEMATOCRIT 22.1 % (42.0-52.0); MEAN CORPUSCULAR HEMOGLOBIN 27.6 pg (27.0-33.0); MEAN CORPUSCULAR HGB CONC 30.8 g/dl (32.0-36.5); MEAN CORPUSCULAR VOLUME 89.8 fl (80.0-96.0); PLATELET COUNT, AUTOMATED 267 10^3/uL (150-450); RED BLOOD COUNT 2.46 10^6/uL (4.30-6.10); WHITE BLOOD COUNT 6.6 10^3/uL (4.0-10.0)
[2024-07-29 05:45] LABS: HEMOGLOBIN 6.8 g/dl (13.5-17.5)
[2024-07-29 06:08] LABS: ALBUMIN 1.7 G/DL (3.2-5.2); ALKALINE PHOSPHATASE 69 U/L (46-116); ALT/SGPT 13 U/L (7.0-40); AST/SGOT 20 U/L (<34); BILIRUBIN,TOTAL 0.3 MG/DL (0.3-1.2); BLOOD UREA NITROGEN 13 MG/DL (9-23); CALCIUM LEVEL 7.7 MG/DL (8.3-10.6); CARBON DIOXIDE LEVEL 30 MMOL/L (20-31); CHLORIDE LEVEL 107 MMOL/L (98-107); CREATININE FOR GFR 1.08 MG/DL (0.70-1.30); GLOMERULAR FILTRATION RATE > 60.0 (>42); GLUCOSE, FASTING 107 MG/DL (74-106); POTASSIUM SERUM 3.9 MMOL/L (3.5-5.1); SODIUM LEVEL 137 MMOL/L (136-145); TOTAL PROTEIN 4.4 G/DL (5.7-8.2)
[2024-07-29 07:27] LABS: Estimated Ave Glu(eAG) 4.9 mmol/L; Hemoglobin A1c 4.7 (<5.7)
[2024-07-29 14:04] LABS: HEMATOCRIT 26.1 % (42.0-52.0); HEMOGLOBIN 8.1 g/dl (13.5-17.5)
[2024-07-29] MEDS: INSULIN LISPRO (NovoLOG) PER UNIT SC SCH (18:00)
[2024-07-29] MEDS: FAT EMULSION IV 250 ML IV ONE (18:26)
[2024-07-29] MEDS: AMINO AC/ELECTROLYTE/DEX/CALC 1,000 ML IV SCH (18:27)
[2024-07-29 19:36] LABS: HEMATOCRIT 28.6 % (42.0-52.0); HEMOGLOBIN 9.2 g/dl (13.5-17.5)
[2024-07-30 02:35] VITALS: BP 104/52; TEMP 97.9; O2SAT 92
[2024-07-30 04:04] VITALS: BP 143/54; TEMP 97.5
[2024-07-30 04:20] VITALS: BP 143/54; TEMP 97.5; O2SAT 92
[2024-07-30] MEDS: DEXTROSE 50% 50ML SYRINGE IV STA (06:07)
[2024-07-30 06:17] LABS: HEMATOCRIT 29.4 % (42.0-52.0); HEMOGLOBIN 9.4 g/dl (13.5-17.5); MEAN CORPUSCULAR VOLUME 90.7 fl (80.0-96.0); PLATELET COUNT, AUTOMATED 235 10^3/uL (150-450); RED BLOOD COUNT 3.24 10^6/uL (4.30-6.10); WHITE BLOOD COUNT 5.9 10^3/uL (4.0-10.0)
[2024-07-30 06:42] LABS: ALBUMIN 2.1 G/DL (3.2-5.2); ALKALINE PHOSPHATASE 68 U/L (46-116); ALT/SGPT 12 U/L (7.0-40); AST/SGOT 21 U/L (<34); BILIRUBIN,TOTAL 0.6 MG/DL (0.3-1.2); BLOOD UREA NITROGEN 13 MG/DL (9-23); CARBON DIOXIDE LEVEL 29 MMOL/L (20-31); CHLORIDE LEVEL 108 MMOL/L (98-107); CREATININE FOR GFR 0.96 MG/DL (0.70-1.30); GLOMERULAR FILTRATION RATE > 60.0 (>42); GLUCOSE, FASTING 85 MG/DL (74-106); POTASSIUM SERUM 3.8 MMOL/L (3.5-5.1); SODIUM LEVEL 137 MMOL/L (136-145); TOTAL PROTEIN 4.6 G/DL (5.7-8.2)
[2024-07-30] MEDS ORDERED: DEXTROSE 50% 50ML SYRINGE IV PRN (06:55)
[2024-07-30] MEDS ORDERED: GLUCAGON INJ 1MG VIAL SC PRN (06:55)
[2024-07-30] MEDS ORDERED: GLUCOSE 4 GM CHEW PO PRN (06:55)
[2024-07-30 12:19] VITALS: BP 113/60; TEMP 98.1; O2SAT 97
[2024-07-30] MEDS: AMINO AC/ELECTROLYTE/DEX/CALC 1,000 ML IV SCH (18:13)
[2024-07-30] MEDS: FAT EMULSION IV 250 ML IV ONE (18:14)
[2024-07-30 20:39] VITALS: BP 120/61; TEMP 97.3; O2SAT 90
[2024-07-31] VITALS (9 sets, daily range): BP systolic 115–135; BP diastolic 61–69; TEMP 96.6–98.1; O2SAT 93–98
[2024-07-31 06:41] LABS: HEMATOCRIT 32.5 % (42.0-52.0); HEMOGLOBIN 10.3 g/dl (13.5-17.5); MEAN CORPUSCULAR HEMOGLOBIN 28.5 pg (27.0-33.0); MEAN CORPUSCULAR HGB CONC 31.7 g/dl (32.0-36.5); MEAN CORPUSCULAR VOLUME 89.8 fl (80.0-96.0); PLATELET COUNT, AUTOMATED 264 10^3/uL (150-450); RED BLOOD COUNT 3.62 10^6/uL (4.30-6.10)
[2024-07-31 07:06] LABS: ALKALINE PHOSPHATASE 69 U/L (46-116); ALT/SGPT 12 U/L (7.0-40); AST/SGOT 20 U/L (<34); BILIRUBIN,TOTAL 0.5 MG/DL (0.3-1.2); BLOOD UREA NITROGEN 10 MG/DL (9-23); CALCIUM LEVEL 7.6 MG/DL (8.3-10.6); CARBON DIOXIDE LEVEL 28 MMOL/L (20-31); CHLORIDE LEVEL 107 MMOL/L (98-107); CREATININE FOR GFR 0.95 MG/DL (0.70-1.30); GLOMERULAR FILTRATION RATE > 60.0 (>42); GLUCOSE, FASTING 76 MG/DL (74-106); POTASSIUM SERUM 3.9 MMOL/L (3.5-5.1); SODIUM LEVEL 135 MMOL/L (136-145); TOTAL PROTEIN 4.7 G/DL (5.7-8.2)
[2024-07-31] MEDS ORDERED: ISOVUE-300 61% 100ML VIAL As Ordered ONE (13:31)
[2024-07-31] MEDS ORDERED: LIDOCAINE 2% JELLY 6ML SYRINGE As Ordered ONE (13:31)
[2024-07-31] MEDS ORDERED: ATROPINE SULF 1MG/10ML SYRINGE As Ordered ONE (13:33)
[2024-07-31] MEDS ORDERED: dexmedeTOMIDine (4MCG/ML)200MCG/50ML BTL (PRECEDEX) As Ordered ONE (13:33)
[2024-07-31] MEDS ORDERED: ceFAZolin 2 GM/D5W 50 ML IV BAG As Ordered ONE (15:53)
[2024-07-31] MEDS ORDERED: GLUCAGON INJ 1MG VIAL As Ordered ONE (15:54)
[2024-07-31] MEDS: ceFAZolin SOD 2 GM in IV 1 EA IV ONE (15:58)
[2024-07-31] MEDS: NS 1,000 ML IV SCH (15:58)
[2024-07-31] MEDS ORDERED: ACETAMINOPHEN 500 MG TAB PO PRN (16:55)
[2024-07-31] MEDS ORDERED: GLYCOPYRROLATE INJ 0.2 MG/ML 2 ML VIAL As Ordered ONE (17:13)
[2024-07-31] MEDS: FAT EMULSION IV 250 ML IV ONE (17:51)
[2024-08-01] VITALS (9 sets, daily range): BP systolic 102–136; BP diastolic 57–73; TEMP 97.3–98.4; O2SAT 90–97
[2024-08-01 05:15] LABS: HEMATOCRIT 31.5 % (42.0-52.0); MEAN CORPUSCULAR HEMOGLOBIN 28.6 pg (27.0-33.0); MEAN CORPUSCULAR HGB CONC 31.7 g/dl (32.0-36.5); PLATELET COUNT, AUTOMATED 236 10^3/uL (150-450); WHITE BLOOD COUNT 4.9 10^3/uL (4.0-10.0)
[2024-08-01 05:37] LABS: ALBUMIN 1.9 G/DL (3.2-5.2); ALKALINE PHOSPHATASE 64 U/L (46-116); ALT/SGPT 11 U/L (7.0-40); AST/SGOT 18 U/L (<34); BILIRUBIN,TOTAL 0.4 MG/DL (0.3-1.2); BLOOD UREA NITROGEN 12 MG/DL (9-23); CALCIUM LEVEL 7.6 MG/DL (8.3-10.6); CARBON DIOXIDE LEVEL 29 MMOL/L (20-31); CHLORIDE LEVEL 102 MMOL/L (98-107); CREATININE FOR GFR 0.88 MG/DL (0.70-1.30); GLOMERULAR FILTRATION RATE > 60.0 (>42); GLUCOSE, FASTING 103 MG/DL (74-106); SODIUM LEVEL 134 MMOL/L (136-145); TOTAL PROTEIN 4.7 G/DL (5.7-8.2)
[2024-08-01] MEDS: PERMETHRIN 5% CREAM 60 GM EXT ONE (14:24)
[2024-08-01] MEDS ORDERED: ATROPINE SULF 0.4 MG/ML 1ML VIAL As Ordered ONE (17:50)
[2024-08-01] MEDS: ENOXAPARIN 60MG/0.6ML SYRINGE (J1650 PER 10MG) SC SCH (22:00)
[2024-08-01] MEDS: D5W/LR 1,000 ML IV SCH (22:02)
[2024-08-02] VITALS: BP 115/58; TEMP 97.9; O2SAT 93
[2024-08-02 04:00] VITALS: BP 119/62; TEMP 97.5
[2024-08-02] MEDS ORDERED: ACETAMINOPHEN 500 MG TAB GT PRN (10:55)
== END 2024-08-02 13:15 | disposition left against medical advice (07) | DRG 987 ==
LOC: M ED 09:08 → EDBD 09:08 → M ED INP 15:34 → M MSPAV 20:16
PROVIDERS: ADMIT Internal Medicine; ATTEND Internal Medicine Nephrology
PROC: 07B73ZX Excision of Thorax Lymphatic, Percutaneous Approach, Diagnostic (ICD-10-PCS; principal; 2024-07-28 11:30)
PROC: 30233N1 Transfusion of Nonautologous Red Blood Cells into Peripheral Vein, Percutaneous Approach (ICD-10-PCS; 2024-07-29)
PROC: 30233J1 Transfusion of Nonautologous Serum Albumin into Peripheral Vein, Percutaneous Approach (ICD-10-PCS; 2024-07-29)
PROC: 0JPT03Z Removal of Infusion Device from Trunk Subcutaneous Tissue and Fascia, Open Approach (ICD-10-PCS; 2024-07-31)
PROC: 0DH67UZ Insertion of Feeding Device into Stomach, Via Natural or Artificial Opening (ICD-10-PCS; 2024-07-31 13:00)
PROC: 0DB28ZX Excision of Middle Esophagus, Via Natural or Artificial Opening Endoscopic, Diagnostic (ICD-10-PCS; 2024-08-01)
DX: C15.8 Malignant neoplasm of overlapping sites of esophagus (principal); I26.99 Other pulmonary embolism without acute cor pulmonale; E43 Unspecified severe protein-calorie malnutrition; E87.1 Hypo-osmolality and hyponatremia; N17.9 Acute kidney failure, unspecified; C78.01 Secondary malignant neoplasm of right lung; B37.0 Candidal stomatitis; C16.0 Malignant neoplasm of cardia; C78.1 Secondary malignant neoplasm of mediastinum; R13.10 Dysphagia, unspecified; R63.4 Abnormal weight loss; R29.6 Repeated falls; R53.1 Weakness; Z66 Do not resuscitate; D50.9 Iron deficiency anemia, unspecified; E55.9 Vitamin D deficiency, unspecified; F17.210 Nicotine dependence, cigarettes, uncomplicated; N18.9 Chronic kidney disease, unspecified; I95.81 Postprocedural hypotension; E16.2 Hypoglycemia, unspecified; R93.3 Abnormal findings on diagnostic imaging of other parts of digestive tract; Z85.810 Personal history of malignant neoplasm of tongue; Z92.3 Personal history of irradiation; Z79.01 Long term (current) use of anticoagulants; Z92.21 Personal history of antineoplastic chemotherapy; K22.70 Barrett's esophagus without dysplasia